=== PATIENT | male | born 2000 ===

== ENCOUNTER 2018-05-30 16:24 | Emergency (ER) | payer OTHER ==
[2018-05-30 16:33] VITALS: BP 135/75
--- NOTE | 2018-06-08 17:49 | ED ---
Head Injury - HPI Summary HPI Summary: Pt here w/ head injury last night. Reports he hit his Lt side of head last night against door car frame. Area has been sore and bruised since w/ a small bump. He denies LOC, visual change, nausea, vomiting, photophobia, neck pain, numbness, dizziness, balance issues, tinnitus, tingling or weakness however he has had trouble sleeping last night and occasional difficulty concentrating today. Reports h/o head injury a while ago - dx'd w/ concussion and sx resolved. They returned a few weeks ago when he tried drinking ETOH but then went away when he stopped ad hasn't since. Sx today do not feel worse than before. He is concerned because he was able to prolong taking a test for school with last head injury and he's supposed to re-take it again soon. - History Of Current Complaint Chief Complaint: EDHeadInjury Stated Complaint: CONCUSSION Time Seen by Provider: 05/30/18 17:05 Hx Obtained From: Patient Pain Intensity: 0 Pain Scale Used: 0-10 Numeric - Allergies/Home Medications Allergies/Adverse Reactions: Allergies Allergy/AdvReac Type Severity Reaction Status Date / Time No Known Allergies Allergy Verified 05/30/18 16:31 PMH/Surg Hx/FS Hx/Imm Hx Previously Healthy: Yes Endocrine/Hematology History: Denies: Hx Anticoagulant Therapy, Hx Blood Disorders Infectious Disease History: No Infectious Disease History: Denies: Traveled Outside the [place] in Last 30 Days - Social History Occupation: Student Lives: Dormitory/Roommates Alcohol Use: Occasionally Hx Substance Use: No Substance Use Type: Reports: None Hx Tobacco Use: No Smoking Status (MU): Never Smoked Tobacco Review of Systems Constitutional: Negative Negative: Fatigue Eyes: Negative Negative: Photophobia, Blurred Vision, Diplopia Negative: Vomiting, Nausea Genitourinary: Negative Musculoskeletal: Negative Negative: Arthralgia, Myalgia, Decreased ROM Neurological: Other - focal soreness over Lt side of head where he struck car door frame; confusion, difficulty sleeping Negative: Headache Psychological: Normal All Other Systems Reviewed And Are Negative: Yes Physical Exam Triage Information Reviewed: Yes Vital Signs On Initial Exam: Initial Vitals Temp Pulse Resp BP Pulse Ox 98.4 F 65 16 135/75 98 05/30/18 16:27 05/30/18 16:27 05/30/18 16:27 05/30/18 16:27 05/30/18 16:27 Vital Signs Reviewed: Yes Appearance: Positive: Well-Appearing, No Pain Distress, Well-Nourished Skin: Positive: Warm, Skin Color Reflects Adequate Perfusion, Dry - mild superficial ecchymosis over skin along Lt forehead/hairline - no hematoma - mild TTP - no skin breakdown Head/Face: Positive: Normal Head/Face Inspection - otherwise normal - no battlesign, no raccoon eyes, no step off, no crepitus Eyes: Positive: Normal, EOMI, ROBIN - no photophobia ENT: Positive: Pharynx normal - atraumatic, TMs normal - no hemotympanum. Negative: Nasal drainage Dental: Negative: Dental Fracture @ Neck: Positive: Supple, Nontender Respiratory/Lung Sounds: Positive: Breath Sounds Present Cardiovascular: Positive: Normal Musculoskeletal: Positive: Normal, Strength/ROM Intact Neurological: Positive: Normal, Sensory/Motor Intact, Alert, Oriented to Person Place, Time, CN Intact II-III Psychiatric: Positive: Normal - concerned and anxious but calm and cooperative Diagnostics - Vital Signs Vital Signs Temp Pulse Resp BP Pulse Ox 05/30/18 17:23 98.4 F 65 16 135/75 98 05/30/18 16:27 98.4 F 65 16 135/75 98 - Laboratory Lab Statement: Any lab studies that have been ordered have been reviewed, and results considered in the medical decision making process. Head Injury Course/Dx Course Of Treatment: Pt presents w/ mild concussion sx - his clinical presentation does not warrant head CT today hwoever discussed if sx wrsen, he may benefit from imaging since his previous head injury was not that long ago. He had recovered from those sx completely however and sx today are not worse. Advised concussion rest protocol and close f/u in 48 hours. Pt agrees w/ plan. - Diagnoses Provider Diagnoses: Concussion Discharge - Sign-Out/Discharge Documenting (check all that apply): Patient Departure - Discharge Plan Condition: Stable Disposition: HOME Patient Education Materials: Concussion (ED) Forms: *School Release Referrals: [facility] - Wilian ZHANG [Medical Doctor] - Additional Instructions: Rest both physically and cognitively for 48 hours - avoid screens (ie. TV, computer, phone, etc), focusing (ie. reading, holding lengthy or in depth conversation), exertion (ie. carrying heavy objects, going upstairs/hills, jogging, etc) and stimulants (ie. caffeine such as chocolate, coffee, tea, soda , alcohol, etc). Stay hydrated and well nourished Follow-up with PCP in 2 days for recheck of symptoms. Call Friday to schedule an appointment for Friday. *If you develop change in vision, vomiting, dizziness, numbness, weakness, worsening of current symptoms, headache, syncope or slurred speech, return to ED - Billing Disposition and Condition Condition: STABLE Disposition: Home
== END 2018-05-30 17:23 | disposition home or self-care (01) ==
LOC: ED 16:24
DX: S06.0X0A Concussion without loss of consciousness, initial encounter (principal); W22.8XXA Striking against or struck by other objects, initial encounter; Y93.9 Activity, unspecified; Y92.810 Car as the place of occurrence of the external cause
CPT/HCPCS: 99281